=== PATIENT | female | born 1965 | race Caucasian/White ===

== ENCOUNTER 2017-10-07 19:43 | Emergency (ER) | payer OTHER ==
[~2017-10-07] VITALS: Ht 167.6 cm; Wt 67.3 kg
[~2017-10-07 19:43] MED LIST: ACET-709 PO; ASCO100019 PO; ATOM100C PO; BIOT25005 PO; CALC-534 PO; CEFD300C37 PO; CLON-365 PO; CYAN100063 PO; DIAZ10TA PO; DIAZ10TA4 PO; DIAZ5TAB PO; DIHY1SPR NS; FLUO20CA19 PO; FLUO40CA9 PO; GOLD1CAP PO; HYDR-3245 PO; IBUP-1484 PO; LEVO1TAB41 PO; MAGN500T PO; MULT-658 PO; NITR1PAT PO; NORE-40 PO; TEMA15CA6 PO; TEMA30CA PO; TRAZ100T15 PO; TRAZ50TA18 PO; VITA150T PO; ZIPR20CA2 PO; ZIPR60CA3 PO; ZOLP10TA5 PO
[2017-10-07 20:30] LABS: BASOPHILS # (AUTO) 0.02 x10^3/uL (0-0.1); BASOPHILS % (AUTO) 0 % (0-1); EOSINOPHILS # (AUTO) 0.09 x10^3/uL (0-0.4); EOSINOPHILS % (AUTO) 2 % (1-7); LYMPHOCYTES # (AUTO) 1.84 x10^3/uL (1-3.4); LYMPHOCYTES % (AUTO) 32 % (22-44); MD NO; MEAN CORPUSCULAR HEMOGLOBIN 31.9 pg (27.0-34.8); MEAN CORPUSCULAR HGB CONC 34.3 g/dL (32.4-35.8); MEAN CORPUSCULAR VOLUME 92.9 fL (80-100); MEAN PLATELET VOLUME 7.5 fL (7.4-10.4); MONOCYTES # (AUTO) 0.54 x10^3/uL (0.2-0.8); MONOCYTES % (AUTO) 9 % (2-9); NEUTROPHILS # (AUTO) 3.32 x10^3/uL (1.8-6.8); NEUTROPHILS % (AUTO) 57 % (42-75); PLATELET COUNT 294 x10^3/uL (130-400); RED BLOOD COUNT 4.13 x10^6/uL (3.82-5.3); RED CELL DISTRIBUTION WIDTH 12.7 % (9.6-15.2)
[2017-10-07 20:36] LABS: ALANINE AMINOTRANSFERASE 30 U/L (12-78); ALBUMIN 3.8 g/dL (3.4-5.0); ANION GAP 6 mmol/L (5-15); CALCIUM 8.7 mg/dL (8.5-10.1); CHLORIDE 102 mmol/L (98-107); CREATININE 0.66 mg/dL (0.55-1.02)
[2017-10-07 20:39] LABS: ALKALINE PHOSPHATASE 47 U/L (45-117); BILIRUBIN,TOTAL 0.1 mg/dL (0.2-1.0); TOTAL PROTEIN 7.5 g/dL (6.4-8.2)
[2017-10-07 21:22] LABS: MICROSCOPIC AUTO
[2017-10-07 21:40] LABS: CULTURE INDICATED? YES
[2017-10-07 22:23] VITALS: BP 116/64
== END 2017-10-07 22:26 | disposition home or self-care (01) ==
LOC: ED 22:20
DX: F41.0 Panic disorder [episodic paroxysmal anxiety] (principal); R68.89 Other general symptoms and signs; M19.90 Unspecified osteoarthritis, unspecified site; F31.9 Bipolar disorder, unspecified
CPT/HCPCS: 36415; 80053; 81001; 83690; 85025; 87077; 87086; 87186; 93005; 99285

== ENCOUNTER 2019-06-17 12:03 | Emergency (ER) | payer OTHER ==
[~2019-06-17] VITALS: Ht 167.6 cm; Wt 72.5 kg
[~2019-06-17 12:03] MED LIST changes: -CLON-365 PO; +CLON1TAB11 PO; -IBUP-1484 PO; +IBUP-1902 PO; +TRAZ-175 PO; -TRAZ100T15 PO; -TRAZ50TA18 PO; +TRAZ50TA66 PO
[2019-06-17 12:37] VITALS: BP 151/90
== END 2019-06-17 13:55 | disposition home or self-care (01) ==
LOC: ED 13:53
DX: J06.9 Acute upper respiratory infection, unspecified (principal)
CPT/HCPCS: 71046; 99283

== ENCOUNTER 2019-06-23 11:26 | Emergency (ER) | payer OTHER ==
[~2019-06-23] VITALS: Ht 167.6 cm; Wt 70.0 kg
[2019-06-23 11:30] VITALS: BP 145/98
--- NOTE | 2019-06-23 11:58 | NUR ---
STERILE PROC TECH: PT TO ROOM FROM LOBBY
--- NOTE | 2019-06-23 12:45 | NUR ---
PIV STARTED AND BLOOD DRAWN AND SENT TO LAB. CALL BUTTON IN LAP. SIDE RAILS UP X 2. AT BEDSIDE. DR. DELANEY AT BEDSIDE. PT IN NO DISTRESS. CONTINUOUS CARDIAC AND SPO2 MONITORS IN PLACE.
[2019-06-23 12:59] LABS: BASOPHILS # (AUTO) 0.03 x10^3/uL (0-0.1); BASOPHILS % (AUTO) 0 % (0-1); EOSINOPHILS # (AUTO) 0.06 x10^3/uL (0-0.4); EOSINOPHILS % (AUTO) 1 % (1-7); LYMPHOCYTES # (AUTO) 1.96 x10^3/uL (1-3.4); LYMPHOCYTES % (AUTO) 30 % (22-44); MD NO; MEAN CORPUSCULAR HEMOGLOBIN 31.2 pg (27.0-34.8); MEAN CORPUSCULAR HGB CONC 33.5 g/dL (32.4-35.8); MEAN CORPUSCULAR VOLUME 93.3 fL (80-100); MEAN PLATELET VOLUME 7.6 fL (7.4-10.4); MONOCYTES # (AUTO) 0.45 x10^3/uL (0.2-0.8); MONOCYTES % (AUTO) 7 % (2-9); NEUTROPHILS # (AUTO) 4.12 x10^3/uL (1.8-6.8); NEUTROPHILS % (AUTO) 62 % (42-75); PLATELET COUNT 273 x10^3/uL (130-400); RED BLOOD COUNT 4.19 x10^6/uL (3.82-5.3); RED CELL DISTRIBUTION WIDTH 13.4 % (9.6-15.2)
[2019-06-23 13:07] LABS: ALBUMIN 3.7 g/dL (3.4-5.0); ANION GAP 6 mmol/L (5-15); CALCIUM 8.8 mg/dL (8.5-10.1); CHLORIDE 101 mmol/L (98-107)
[2019-06-23] MEDS ORDERED: DIAZ5TAB4 PO (13:08)
[2019-06-23 13:13] LABS: CREATININE 0.81 mg/dL (0.55-1.02); TROPONIN I < 0.015 ng/mL (0.000-0.045)
--- NOTE | 2019-06-23 14:43 | NUR ---
REPORT GIVEN TO MATTHEW VAZQUEZ AT [facility].
--- NOTE | 2019-06-23 15:50 | NUR ---
Patient's given transfer paperwork for [facility]. Patient ambulatory with steady gait.
== END 2019-06-23 15:50 | disposition short-term general hospital (02) ==
LOC: ED 13:52
DX: R55 Syncope and collapse (principal); R07.9 Chest pain, unspecified; R00.1 Bradycardia, unspecified
CPT/HCPCS: 36415; 80048; 82040; 84443; 84484; 85025; 93005; 99285